=== PATIENT | male | born 1965 | race Caucasian/White ===

== ENCOUNTER 2017-08-31 03:48 | Emergency (ER) | payer BC, OTHER ==
[2017-08-31 03:56] VITALS: BP 159/85
--- NOTE | 2017-08-31 04:25 | EDM.PDOC ---
ED HPI GENERAL MEDICAL PROBLEM - General Chief Complaint: Gastrointestinal Problem Stated Complaint: ANAL BLEED Time Seen by Provider: 08/31/17 03:54 Source of Information: Reports: Patient History Limitations: Reports: No Limitations - History of Present Illness INITIAL COMMENTS - FREE TEXT/NARRATIVE: The patient presents with painful rectal bleeding. This started yesterday. He has a history of hemorrhoids. Every time he goes he has blood. He has some pain to his rectum. He has no fever but he does have some chills. He has no cough, chest pain or shortness of breath. He has no nausea or vomiting. He says he had a colonoscopy about 4 to 5 years ago. Onset: Gradual Duration: Day(s): (Yesterday) Location: Reports: Abdomen Quality: Reports: Sharp Severity: Moderate Improves with: Reports: None Worsens with: Reports: None Associated Symptoms: Reports: Fever/Chills. Denies: Confusion, Chest Pain, Cough, Nausea/Vomiting, Shortness of Breath Rectal Pain Score (Numeric/FACES): 2 - Related Data Allergies Allergy/AdvReac Type Severity Reaction Status Date / Time No Known Allergies Allergy Verified 08/31/17 03:52 Home Meds: Home Meds Hydrocodone/Acetaminophen [[place] 5-325] 1 - 2 tab PO Q6H PRN #5 tablet #5 Samples 09/09/14 [Rx] Tamsulosin HCl [Flomax] 0.4 mg PO Q24H #10 cap.er.24h 09/09/14 [Rx] Apixaban [Eliquis] 10 mg PO DAILY 08/31/17 [History] Aspirin [Halfprin] 81 mg PO DAILY 08/31/17 [History] Docusate Sodium [Stool Softener] 50 mg PO 08/31/17 [History] Ferrous Sulfate [Slow Release Iron] 100 mg PO DAILY 08/31/17 [History] Metoprolol Succinate/HCTZ [Metoprolol ER-Hctz 25-12.5 mg] 25 mg PO DAILY [History] Omeprazole 20 mg PO DAILY 08/31/17 [History] Simvastatin [Zocor] 20 mg PO BEDTIME 08/31/17 [History] Past Medical History Cardiovascular History: Reports: High Cholesterol Gastrointestinal History: Reports: GERD, Hemorrhoids Genitourinary History: Reports: Renal Calculus Musculoskeletal History: Reports: Arthritis - Past Surgical History Cardiovascular Surgical History: Reports: None GI Surgical History: Reports: Colonoscopy Male Surgical History: Reports: None Musculoskeletal Surgical History: Reports: None Social & Family History - Family History Family Medical History: Noncontributory - Tobacco Use Smoking Status *Q: Never Smoker Second Hand Smoke Exposure: No - Caffeine Use Caffeine Use: Reports: Soda - Alcohol Use Days Per Week of Alcohol Use: 0 - Recreational Drug Use Recreational Drug Use: No ED ROS GENERAL - Review of Systems Review Of Systems: See Below Constitutional: Reports: No Symptoms HEENT: Reports: No Symptoms Respiratory: Reports: No Symptoms Cardiovascular: Reports: No Symptoms Endocrine: Reports: No Symptoms GI/Abdominal: Reports: Abdominal Pain, Bloody Stool : Reports: No Symptoms Musculoskeletal: Reports: No Symptoms Skin: Reports: No Symptoms ED EXAM, GI/ABD - Physical Exam Exam: See Below Exam Limited By: No Limitations General Appearance: Alert, No Apparent Distress Ears: Normal External Exam Nose: Normal Inspection Head: Atraumatic, Normocephalic Neck: Normal Inspection Respiratory/Chest: No Respiratory Distress, Lungs Clear, Normal Breath Sounds Cardiovascular: Regular Rate, Rhythm, No Edema, No Murmur GI/Abdominal Exam: Soft, No Organomegaly, No Mass, Tender (Mild to the lower abdomen) Rectal (Males) Exam: Normal Rectal Tone, Heme + Stool, Other (Small extra hemorrhoids but no active bleeding) Course - Vital Signs Last Recorded V/S: Last Vital Signs Temp 97.4 F 08/31/17 03:54 Pulse 65 08/31/17 03:54 Resp 14 08/31/17 03:54 BP 159/85 H 08/31/17 03:54 Pulse Ox 97 08/31/17 03:54 - Orders/Labs/Meds Orders: Active Orders 24 hr Category Date Time Status Peripheral IV Care [RC] . DIRECTED Care 08/31/17 04:24 Active Abdomen Pelvis w Cont [CT] Stat Exams 08/31/17 04:23 Taken Sodium Chloride 0.9% [Normal Saline] 1,000 ml Med 08/31/17 04:30 Active IV ASDIRECTED Sodium Chloride 0.9% [Saline Flush] Med 08/31/17 04:23 Active 10 ml FLUSH ASDIRECTED PRN Peripheral IV Insertion Adult [OM.PC] Stat Oth 08/31/17 04:23 Ordered Medication Orders Sodium Chloride (Normal Saline) 1,000 mls @ 125 mls/hr IV ASDIRECTED GARRY Last Admin: 08/31/17 04:39 Dose: 125 mls/hr Sodium Chloride (Saline Flush) 10 ml FLUSH ASDIRECTED PRN PRN Reason: Keep Vein Open Last Admin: 08/31/17 05:35 Dose: 10 ml Admin: 08/31/17 04:39 Dose: 10 ml Labs: Laboratory Tests 08/31/17 08/31/17 08/31/17 Range/Units 04:30 04:30 05:45 WBC 8.20 (4.23-9.07) K/mm3 RBC 3.82 L (4.63-6.08) M/mm3 Hgb 11.0 L (13.7-17.5) gm/L Hct 34.1 L (40.1-51.0) % MCV 89.3 (79.0-92.2) fl MCH 28.8 (25.7-32.2) pg MCHC 32.3 (32.2-35.5) g/dl RDW Std Deviation 47.9 H (35.1-43.9) fL Plt Count 248 (163-337) K/mm3 MPV 9.9 (9.4-12.3) fl Neut % (Auto) 70.8 H (34.0-67.9) % Lymph % (Auto) 15.1 L (21.8-53.1) % [place] % (Auto) 11.5 (5.3-12.2) % Eos % (Auto) 1.6 (0.8-7.0) Baso % (Auto) 0.9 (0.1-1.2) % Neut # (Auto) 5.81 H (1.78-5.38) K/mm3 Lymph # (Auto) 1.24 L (1.32-3.57) K/mm3 [place] # (Auto) 0.94 H (0.30-0.82) K/mm3 Eos # (Auto) 0.13 (0.04-0.54) K/mm3 Baso # (Auto) 0.07 (0.01-0.08) K/mm3 Sodium 143 (136-145) mEq/L Potassium 3.9 (3.5-5.1) mEq/L Chloride 109 H (98-107) mEq/L Carbon Dioxide 23 (21-32) mEq/L Anion Gap 14.9 (5-15) BUN 19 H (7-18) mg/dL Creatinine 1.5 H (0.7-1.3) mg/dL Est Cr Clr Drug Dosing 68.85 mL/min Estimated GFR (MDRD) 49 (>60) mL/min BUN/Creatinine Ratio 12.7 L (14-18) Glucose 114 H (74-106) mg/dL Calcium 8.5 (8.5-10.1) mg/dL Total Bilirubin 0.5 (0.2-1.0) mg/dL AST 14 L (15-37) U/L ALT 24 (16-63) U/L Alkaline Phosphatase 65 (46-116) U/L Total Protein 6.5 (6.4-8.2) g/dl Albumin 3.5 (3.4-5.0) g/dl Globulin 3.0 gm/dL Albumin/Globulin Ratio 1.2 (1-2) Lipase 138 (73-393) U/L Urine Color Yellow (Yellow) Urine Appearance Clear (Clear) Urine pH 6.0 (5.0-8.0) Ur Specific [place] 1.015 (1.005-1.030) Urine Protein Trace H (Negative) Urine Glucose (UA) Negative (Negative) Urine Ketones Negative (Negative) Urine Occult Blood 2+ H (Negative) Urine Nitrite Negative (Negative) Urine Bilirubin Negative (Negative) Urine Urobilinogen 0.2 (0.2-1.0) Ur Leukocyte Esterase Negative (Negative) Urine RBC 5-10 H (0-5) /hpf Urine WBC 10-20 H (0-5) /hpf Ur Epithelial Cells 5-10 H (0-5) /hpf Urine Bacteria Rare (FEW) /hpf Urine Mucus Not seen (FEW) /hpf Meds: Medications Generic Name Dose Route Start Last Admin Trade Name Freq PRN Reason Stop Dose Admin Sodium Chloride 1,000 mls @ 125 mls/hr 08/31/17 04:30 08/31/17 04:39 Normal Saline IV 125 mls/hr ASDIRECTED GARRY Administration Sodium Chloride 10 ml 08/31/17 04:23 08/31/17 05:35 Saline Flush FLUSH 10 ml ASDIRECTED PRN Administration Keep Vein Open Discontinued Medications Generic Name Dose Route Start Last Admin Trade Name Adriane PRN Reason Stop Dose Admin Diatrizoate Meglum/Diatrizoate Sod 90 ml 08/31/17 05:23 08/31/17 05:34 Gastrografin 37% PO 08/31/17 05:24 90 ml ONETIME ONE Administration Iopamidol 125 ml 08/31/17 05:23 08/31/17 05:34 Isovue-300 (61%) IVPUSH 08/31/17 05:24 125 ml ONETIME ONE Administration - Re-Assessments/Exams Free Text/Narrative Re-Assessment/Exam: 08/31/17 04:26 I ordered an IV NS at 125mL/hr, labs, UA and a CT of his abdomen and pelvis. 08/31/17 06:27 His WBC was normal. His Hgb was a little low at 11. His creatinine was 1.5. His lipase was negative. He tells me that he has been having trouble with a kidney stone over the past few days and he may have passed it. His CT shows right nephrolithiasis. Mild right hydronephrosis and hydroureter, seen to the level of the bladder. NO obstructing stone identified. Findings possibly secondary to recently passed stone. Suggest correlation with urinalysis to exclude ascending urinary tract infection. No evidence of pyelonephritis. Colonic diverticulosis without evidence of diverticulitis. He is feeling better. He has not had any bleeding since he was here. I will have him follow up with Dr Yee and return if he is worse. Departure - Departure Time of Disposition: 06:35 Disposition: Home, Self-Care 01 Condition: Good Clinical Impression: Kidney stone, Rectal bleeding - Discharge Information Referrals: Pacheco Lockwood MD [Primary Care Provider] - Tarun Yee MD [Physician] - 2 Days Forms: ED Department Discharge Additional Instructions: Call Dr Yee today and follow up with him. Please return if you have more bleeding or pain. - My Orders Last 24 Hours: My Active Orders 08/31/17 04:23 Abdomen Pelvis w Cont [CT] Stat Sodium Chloride 0.9% [Saline Flush] 10 ml FLUSH ASDIRECTED PRN Peripheral IV Insertion Adult [OM.PC] Stat 08/31/17 04:24 Peripheral IV Care [RC] . DIRECTED 08/31/17 04:30 Sodium Chloride 0.9% [Normal Saline] 1,000 ml IV ASDIRECTED - Assessment/Plan Last 24 Hours: My Active Orders 08/31/17 04:23 Abdomen Pelvis w Cont [CT] Stat Sodium Chloride 0.9% [Saline Flush] 10 ml FLUSH ASDIRECTED PRN Peripheral IV Insertion Adult [OM.PC] Stat 08/31/17 04:24 Peripheral IV Care [RC] . DIRECTED 08/31/17 04:30 Sodium Chloride 0.9% [Normal Saline] 1,000 ml IV ASDIRECTED
[2017-08-31] MEDS ORDERED: Sodium Chloride 0.9% 1,000 ML IV SCH (04:30)
[2017-08-31] MEDS: Sodium Chloride 0.9% 10 ML Syringe FLUSH PRN ×2 (04:39→05:35)
[2017-08-31] MEDS ORDERED: Diatrizoate Meglumine/Diatrizoate Sodium 37% 120 ML Bottle PO ONE (05:23)
[2017-08-31] MEDS ORDERED: Iopamidol 612 MG/ML 150 ML Bottle IVPUSH ONE (05:23)
--- NOTE | 2017-08-31 12:54 | CT ---
CT abdomen and pelvis Technique: Multiple axial sections were obtained from above the dome of the diaphragm inferiorly to the pubic symphysis. Intravenous contrast was utilized. Small amount of oral contrast is seen. Delayed images were obtained through the pelvis. Comparison: Previous noncontrast CT abdomen and pelvis exam dated 05/16/15. Findings: Inflammatory change seen around the right kidney. There is mild dilatation of the right ureter down to the UVJ. No obstructing stone is seen within the right ureter or within the bladder. Several nonobstructing calculi seen within the right kidney. Contrast enhancement is symmetric between right and left kidneys. Visualized lung bases show nothing acute. Liver shows no focal parenchymal abnormality. Spleen appears within normal limits. Adrenal glands show no nodule. Pancreas is within normal limits. Aorta is slightly ectatic with AP dimension up to 2.5 cm. No pelvic mass or adenopathy is seen. Appendix is seen which appears normal in size. Delayed images show contrast within the distal left ureter. More delayed images show contrast excretion from the right kidney. Left sided colonic diverticuli noted without inflammatory change. Bone window settings were reviewed which show severe disc space narrowing at L5-S1 with vacuum phenomena. Mild spondylolisthesis is seen at L5-S1 due to bilateral spondylolytic defects. Impression: 1. Inflammatory change around the right kidney with mild dilatation of the right ureter. No obstructing stone is seen. Differential includes a stone that has passed as well as infection. Please correlate. 2. Several nonobstructing calculi within the right kidney. 3. Other incidental findings as noted above. Diagnostic code #3 I agree with preliminary report issued by [facility] ([facility] report finalized on 08/31/17, 6:50 AM Central Time)
== END 2017-08-31 06:40 | disposition home or self-care (01) ==
LOC: JD.ED 03:48
DX: K62.5 Hemorrhage of anus and rectum (principal); N13.2 Hydronephrosis with renal and ureteral calculous obstruction; E78.00 Pure hypercholesterolemia, unspecified; K21.9 Gastro-esophageal reflux disease without esophagitis; M19.90 Unspecified osteoarthritis, unspecified site; Z79.82 Long term (current) use of aspirin; Z79.899 Other long term (current) drug therapy
CPT/HCPCS: 36415; 74177; 80053; 81001; 83690; 85025; 96360; 96361; 99284; J7040; J7050; Q9963; Q9967

== ENCOUNTER → 2017-09-06 | Day surgery (SDC) | payer BC ==
[~2017-09-06] MED LIST: Lactated Ringers 1,000 ML IV SCH; Lidocaine 1% 4 ML ONE; Lidocaine 1%/Sod Bicarbonate in NS 8.4% 1 ML Syringe PRN; Propofol 200 MG/20 ML SDV ONE; Sodium Chloride 0.9% 10 ML Syringe FLUSH PRN; fentaNYL 100 MCG/2 ML SDV ONE
--- NOTE | 2017-09-06 08:07 | PCM.PREANE ---
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 and no symptoms noted since.) Other: Reports: None (CT scan reveals Right hydronephrosis due likely to a renal stone./Mild renal insufficiency noted./Patient states that he has recently passed the kidney stone.), Easy Bleeding (Off of Eliquis since 2016), Easy Bruising, Diabetes (Pre-diabetic monitoring noted.) - Physical Assessment NPO Status Date: 09/05/17 NPO Status Time: 18:00 Pulse: 57 O2 Sat by Pulse Oximetry: 97 Respiratory Rate: 16 Blood Pressure: 147/86 Temperature: 37.3 C Height: 1.91 m Weight: 114.759 kg ASA Class: 2 Mental Status: Alert & Oriented x3 Airway Class: Mallampati = 2 Dentition: Reports: Normal Dentition, Caries Thyro-Mental Finger Breadths: 3 Mouth Opening Finger Breadths: 3 ROM/Head Extension: Full Lungs: Clear to Auscultation, Normal Respiratory Effort Cardiovascular: Regular Rate, Regular Rhythm - Lab Values: Lab values reviewed and noted and within acceptable ranges to proceed with scheduled procedure. - Allergies Allergies/Adverse Reactions: Allergies Allergy/AdvReac Type Severity Reaction Status Date / Time No Known Allergies Allergy Verified 09/03/17 12:31 - Anesthesia Plan Pre-Op Medication Ordered: Beta Shantell Beta Shantell: Metoprolol Med Last Dose Date: 09/06/17 Med Last Dose Time: 06:30 - Acknowledgements Anesthesia Type Planned: MAC Pt an Appropriate Candidate for the Planned Anesthesia: Yes Alternatives and Risks of Anesthesia Discussed w Pt/Guardian: Yes Pt/Guardian Understands and Agrees with Anesthesia Plan: Yes PreAnesthesia Questionnaire HEENT History: Reports: Other (See Below) Other HEENT History: acute pharyngitis Cardiovascular History: Reports: High Cholesterol, Hypertension Other Cardiovascular History: atrial septal defect Respiratory History: Reports: None Gastrointestinal History: Reports: GERD, Hemorrhoids Genitourinary History: Reports: Renal Calculus, Other (See Below) Other Genitourinary History: hematuria 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 Musculoskeletal History: Reports: Arthritis, Other (See Below) Other Musculoskeletal History: ankle fracture, L shoulder pain Neurological History: Reports: CVA, TIA, Other (See Below) Other Neuro History: facial weakness Psychiatric History: Reports: None Endocrine/Metabolic History: Reports: None Hematologic History: Reports: Anemia Immunologic History: Reports: None Oncologic (Cancer) History: Reports: None Dermatologic History: Reports: Other (See Below) Other Dermatologic History: skin disorder - Past Surgical History Head Surgeries/Procedures: Reports: None Cardiovascular Surgical History: Reports: None Respiratory Surgical History: Reports: None GI Surgical History: Reports: Colonoscopy, Hernia Repair/Other Female Surgical History: Reports: None Male Surgical History: Reports: None Endocrine Surgical History: Reports: None Neurological Surgical History: Reports: None Musculoskeletal Surgical History: Reports: None Oncologic Surgical History: Reports: None - SUBSTANCE USE Smoking Status *Q: Never Smoker Second Hand Smoke Exposure: No Days Per Week of Alcohol Use: 0 Recreational Drug Use History: No - HOME MEDS Home Medications: Home Meds Apixaban [Eliquis] 5 mg PO DAILY 08/31/17 [History] Aspirin [Halfprin] 81 mg PO DAILY 08/31/17 [History] Metoprolol Succinate/HCTZ [Metoprolol ER-Hctz 25-12.5 mg] 25 mg PO DAILY [History] Omeprazole 20 mg PO DAILY 08/31/17 [History] Simvastatin [Zocor] 20 mg PO BEDTIME 08/31/17 [History] Docusate Sodium [Colace] 100 mg PO BID 09/03/17 [History] Ferrous Sulfate [Iron] 325 mg PO BID 09/03/17 [History] - CURRENT (IN HOUSE) MEDS Current Meds: Current Medications Lactated Ringer's (Ringers, Lactated) 1,000 mls @ 125 mls/hr IV ASDIRECTED GARRY Stop: 09/06/17 23:00 Lidocaine/Sodium Bicarbonate (Buffered Lidocaine 1% In Ns 8.4%) 0.25 ml .XX ONETIME PRN PRN Reason: Prior to IV Start Stop: 09/06/17 18:00 Sodium Chloride (Saline Flush) 10 ml FLUSH ASDIRECTED PRN PRN Reason: Keep Vein Open Stop: 09/06/17 18:00 Discontinued Medications Fentanyl (Sublimaze) Confirm Administered Dose 100 mcg .ROUTE .STK-MED ONE Stop: 09/06/17 07:22 Lidocaine HCl (Xylocaine-Mpf 1%) Confirm Administered Dose 4 mls @ as directed .ROUTE .STK-MED ONE Stop: 09/06/17 07:22 Propofol (Diprivan 20 Ml) Confirm Administered Dose 200 mg .ROUTE .STK-MED ONE Stop: 09/06/17 07:22
--- NOTE | 2017-09-06 10:10 | PCM48HPAN ---
Post Anesthesia Note - EVALUATION WITHIN 48HRS OF ANESTHETIC Vital Signs in Normal Range: Yes Patient Participated in Evaluation: Yes Respiratory Function Stable: Yes Airway Patent: Yes Cardiovascular Function Stable: Yes Hydration Status Stable: Yes Pain Control Satisfactory: Yes Nausea and Vomiting Control Satisfactory: Yes Mental Status Recovered: Yes
--- NOTE | 2017-09-06 10:15 | PCM.OPNOTE ---
- General Post-Op/Procedure Note Date of Surgery/Procedure: 09/06/17 Operative Procedure(s): colonoscopy to cecum Findings: diverticulosis and internal hemorrhoids Pre Op Diagnosis: rectal bleeding Post-Op Diagnosis: Same Anesthesia Technique: MAC Primary Surgeon: Tarun Yee EBL in mLs: 0 Condition: Good
[2017-09-06 10:39] VITALS: BP 128/76
--- NOTE | 2017-09-06 13:29 | OR ---
DATE OF OPERATION: SURGEON: Tarun Yee MD PREOPERATIVE DIAGNOSIS: Rectal bleeding. POSTOPERATIVE DIAGNOSIS: Rectal bleeding. OPERATION PERFORMED: Colonoscopy to cecum. FINDINGS: Stage III to stage IV internal hemorrhoids as source of bleeding with prominent rectal veins noted. There was diverticulosis throughout the colon. There were no angiodysplasias, neoplasias, large tumor masses, or ulcerations noted. ANESTHESIA: Done under IV sedation. DESCRIPTION OF PROCEDURE: The patient was taken to the endoscopy room, placed in a supine position, connected to monitoring equipment, and given IV sedation. The patient was placed in left lateral position. Perianal area inspected and showed external hemorrhoids. Rectal exam showed good sphincter tone. A video Olympus colonoscope was then introduced into the rectum and threaded up without problem to the cecum, where the appendicular orifice and ileocecal valve were noted. The scope was slowly withdrawn showing the cecum, ascending colon, transverse colon, descending colon, sigmoid colon, and rectum. Retroflexed view showed some prominent internal hemorrhoids and prominent rectal veins with some mild inflammation of the internal hemorrhoids. The diverticulosis was noted and scattered throughout the colon. Arrangements will be made for him to have a staple hemorrhoidectomy AZAM because of his dependency on anticoagulation. The patient tolerated the procedure and was sent to recovery room in a stable condition. ESTIMATED BLOOD LOSS: MMODAL /[id number]
== END | disposition home or self-care (01) ==
LOC: JD.SDS 07:39
PROVIDERS: ATTEND Surgery
DX: K64.2 Third degree hemorrhoids (principal); K64.3 Fourth degree hemorrhoids; K57.30 Diverticulosis of large intestine without perforation or abscess without bleeding; N13.30 Unspecified hydronephrosis; D50.9 Iron deficiency anemia, unspecified; I10 Essential (primary) hypertension; E78.5 Hyperlipidemia, unspecified; M19.90 Unspecified osteoarthritis, unspecified site; Z86.73 Personal history of transient ischemic attack (TIA), and cerebral infarction without residual deficits; Z79.01 Long term (current) use of anticoagulants; Z79.82 Long term (current) use of aspirin; Z79.899 Other long term (current) drug therapy; Z98.890 Other specified postprocedural states; Z87.442 Personal history of urinary calculi
CPT/HCPCS: 45378; J3010; J7120; 00810; J2704

== ENCOUNTER 2020-10-21 07:21 | Day surgery (SDC) | payer BC ==
--- NOTE | 2020-10-17 11:58 | PCM.SN.2 ---
- Free Text/Narrative Note: Left selective femoral nerve block at the adductor canal for post-procedure pain control under US guidance requested by Dr. Jansen. Time Out: 1125 Start: 1126 End: 1135 Chart reviewed. Consent signed. Questions answered. Appropriate monitors applied. Time out performed. Left mid-shaft femur identified with ultrasound, scanning medially of femur, the femoral artery in the adductor canal visualized, and the femoral nerve located laterally to the artery. The skin was prepped lateral to the ultrasound probe with chlorahexadine times two. The 21ga 4 insulated block needle was inserted under direct ultrasound guidance into the adductor canal. 30 mL of 0.5% ropivacaine with 1:200,000 epinephrine was injected circumferentially around the nerve with intermittent transient positive aspiration noted. Patient tolerated the procedure well. Sterile technique noted along with sterile gloves, mask, and sterile probe cover. See picture on progress note and vital signs on nurses notes. Block completed in PACU. Surekha Curran CRNA
--- NOTE | 2020-10-17 12:16 | PCM.PREANE ---
Preanesthetic Assessment - Procedure Proposed Procedure: Left Total Knee Arthroplasty and Right knee steroid injection - Anesthesia/Transfusion/Family Hx Anesthesia History: Prior Anesthesia Without Reaction Family History of Anesthesia Reaction: No Transfusion History: No Prior Transfusion(s) Intubation History: Unknown - Review of Systems General: No Symptoms Pulmonary: No Symptoms Cardiovascular: No Symptoms (Elevated cholesterol, History of HTN) Gastrointestinal: No Symptoms (GERD) Neurological: No Symptoms (History of CVA (TIA) 8 years ago, no residual side effects noted. Patient was on eliquis due to right to left atrial shunt: last dose/), Difficulty Walking, Gait Disturbance Other: Reports: None (Elevated Creatinine noted/history of kidney stones.) - Physical Assessment NPO Status Date: 10/20/20 NPO Status Time: 22:00 Vital Signs: HR:64 B/P:164/101 Resp:16 Temp:98 Sat:97% Height: 1.91 m Weight: 117 kg ASA Class: 3 Mental Status: Alert & Oriented x3 Airway Class: Mallampati = 2 Dentition: Reports: Normal Dentition, Caries Thyro-Mental Finger Breadths: 3 Mouth Opening Finger Breadths: 3 ROM/Head Extension: Full Lungs: Clear to Auscultation, Normal Respiratory Effort Cardiovascular: Regular Rate, Regular Rhythm, No Murmurs - Lab Values: All labs reviewed and noted and within acceptable ranges to proceed with scheduled procedure. - Imaging/EKG Impressions: EKG: SR rate=60 CXR: minimal basal atelectasis noted - Allergies Allergies/Adverse Reactions: Allergies Allergy/AdvReac Type Severity Reaction Status Date / Time No Known Allergies Allergy Verified 09/06/17 08:17 - Anesthesia Plan Pre-Op Medication Ordered: None, Other (PreOp med: lyrica,tylenol, oxycodone all p.o. at: 07:45) - Acknowledgements Anesthesia Type Planned: Spinal (Left adductor canal block under US guidance for post operative pain control requested by Dr. Jansen.) Pt an Appropriate Candidate for the Planned Anesthesia: Yes Alternatives and Risks of Anesthesia Discussed w Pt/Guardian: Yes Pt/Guardian Understands and Agrees with Anesthesia Plan: Yes PreAnesthesia Questionnaire HEENT History: Reports: Other (See Below) Other HEENT History: acute pharyngitis Cardiovascular History: Reports: High Cholesterol, Hypertension Other Cardiovascular History: atrial septal defect Respiratory History: Reports: None Gastrointestinal History: Reports: GERD, Hemorrhoids Genitourinary History: Reports: Renal Calculus, Other (See Below) Other Genitourinary History: hematuria 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 Musculoskeletal History: Reports: Arthritis, Other (See Below) Other Musculoskeletal History: ankle fracture, L shoulder pain Neurological History: Reports: CVA, TIA, Other (See Below) Other Neuro History: facial weakness Psychiatric History: Reports: None Endocrine/Metabolic History: Reports: None Hematologic History: Reports: Anemia Immunologic History: Reports: None Oncologic (Cancer) History: Reports: None Dermatologic History: Reports: Other (See Below) Other Dermatologic History: skin disorder - Past Surgical History Head Surgeries/Procedures: Reports: None Cardiovascular Surgical History: Reports: None Respiratory Surgical History: Reports: None GI Surgical History: Reports: Colonoscopy, Hernia Repair/Other Female Surgical History: Reports: None Male Surgical History: Reports: None Endocrine Surgical History: Reports: None Neurological Surgical History: Reports: None Musculoskeletal Surgical History: Reports: None Oncologic Surgical History: Reports: None - HOME MEDS Home Medications: Home Meds Aspirin [Halfprin] 81 mg PO DAILY 08/31/17 [History] Metoprolol Succinate/HCTZ [Metoprolol ER-Hctz 25-12.5 mg] 25 mg PO DAILY 08/31/17 [History] Omeprazole 20 mg PO DAILY 08/31/17 [History] Simvastatin [Zocor] 20 mg PO BEDTIME 08/31/17 [History] Docusate Sodium [Colace] 100 mg PO BID 09/03/17 [History] Ferrous Sulfate [Iron] 325 mg PO BID 09/03/17 [History] Apixaban [Eliquis] 2.5 mg PO BID #60 tablet 10/21/20 [Rx] Cyclobenzaprine [Flexeril] 10 mg PO BID PRN #20 tab 10/21/20 [Rx] oxyCODONE 5 - 10 mg PO Q4H PRN #60 tab 10/21/20 [Rx] - CURRENT (IN HOUSE) MEDS Current Meds: Current Medications Morphine Sulfate 8 mg/Epinephrine HCl 0.3 mg/Cefuroxime Sodium 750 mg/Ketorolac Tromethamine 30 mg/Sodium Chloride 7.9 ml 0 mg .XX ASDIRECTED PRN PRN Reason: Pain Stop: 10/21/20 18:00 Lactated Ringer's (Ringers, Lactated) 1,000 mls @ 125 mls/hr IV ASDIRECTED GARRY Stop: 10/21/20 23:00 Lidocaine/Sodium Bicarbonate (Buffered Lidocaine 1% In Ns 8.4%) 0.25 ml IDERM ONETIME PRN PRN Reason: Prior to IV Start Stop: 10/21/20 18:00 Sodium Chloride (Saline Flush) 10 ml FLUSH ASDIRECTED PRN PRN Reason: Keep Vein Open Stop: 10/21/20 18:00
[~2020-10-21 07:21] MED LIST changes: +Acetaminophen 325 MG Tab PO SCH; +Dexamethasone 4 MG/ML 5 ML MDV ONE; +EPINEPHrine 1 MG/ML SDV ONE; +Ketamine 500 mg/10 ML MDV ONE; +Lactated Ringers 2,000 ML ONE; +Lidocaine 1%/Sod Bicarbonate in NS 8.4% 1 ML Syringe IDERM PRN; -Lidocaine 1%/Sod Bicarbonate in NS 8.4% 1 ML Syringe PRN; +Midazolam 1 MG/ML 2 ML SDV ONE; +Morphine 8 MG, EPINEPHrine 0.3 MG, Cefuroxime 750 MG, Ketorolac 30 MG, Sodium Chloride ... PRN; +Ondansetron 4 MG/2 ML SDV ONE; +Pregabalin 25 MG Cap PO SCH; +Ropivacaine 0.5% 5 MG/ML 30 ML SDV ONE; +ceFAZolin 1 GM Vial ONE; +oxyCODONE ER 10 MG TAB.ER PO SCH
[2020-10-21] MEDS ORDERED: Bupivacaine 0.25% 10 ML SDV ONE (07:36)
[2020-10-21] MEDS ORDERED: Triamcinolone Acetonide 40 MG/ML 1 ML SDV ONE ×2 (07:36)
[2020-10-21] MEDS ORDERED: Midazolam 1 MG/ML 2 ML SDV ONE (09:32)
[2020-10-21] MEDS ORDERED: Ondansetron 4 MG/2 ML SDV IVPUSH PRN (09:51)
[2020-10-21] MEDS ORDERED: diphenhydrAMINE 50 MG/ML SDV IVPUSH PRN (09:51)
[2020-10-21] MEDS ORDERED: ePHEDrine 50 MG/ML SDV IVPUSH PRN (09:51)
[2020-10-21] MEDS ORDERED: Albuterol 0.083% 2.5 MG/3 ML Neb Soln NEB PRN (09:51)
[2020-10-21] MEDS ORDERED: ePHEDrine 50 MG/ML SDV ONE (10:18)
[2020-10-21] MEDS ORDERED: Propofol 200 MG/20 ML SDV ONE (10:36)
[2020-10-21] MEDS: Vancomycin 1 GM SDV ONE ×2 (10:49→10:55)
[2020-10-21] MEDS: fentaNYL 100 MCG/2 ML SDV IVPUSH PRN ×2 (11:41→11:50)
--- NOTE | 2020-10-21 11:43 | PCM.POSTAN ---
POST ANESTHESIA ASSESSMENT - MENTAL STATUS Mental Status: Alert - VITAL SIGNS Vital Signs: Last Vital Signs Temp 36.7 C 10/21/20 1120 Pulse 64 10/21/20 1120 Resp 16 10/21/20 1120 BP 164/101 H 10/21/20 1120 Pulse Ox 97 10/21/20 1120 - RESPIRATORY Respiratory Status: Respiratory Rate WNL, Airway Patent, O2 Saturation Stable, Supplemental Oxygen - CARDIOVASCULAR CV Status: Pulse Rate WNL, Blood Pressure Stable - GASTROINTESTINAL GI Status: No Symptoms - POST OP HYDRATION Hydration Status: Adequate & Stable
[2020-10-21] MEDS ORDERED: Cyclobenzaprine 10 MG Tab PO SCH (12:15)
--- NOTE | 2020-10-21 12:24 | PCM48HPAN ---
Post Anesthesia Note - EVALUATION WITHIN 48HRS OF ANESTHETIC Vital Signs in Normal Range: Yes Patient Participated in Evaluation: Yes Respiratory Function Stable: Yes Airway Patent: Yes Cardiovascular Function Stable: Yes Hydration Status Stable: Yes Pain Control Satisfactory: Yes Nausea and Vomiting Control Satisfactory: Yes Mental Status Recovered: Yes Vital Signs: Last Vital Signs Temp 36.7 C 10/21/20 12:05 Pulse 61 10/21/20 12:05 Resp 14 10/21/20 12:05 BP 136/79 10/21/20 12:05 Pulse Ox 96 10/21/20 12:05
--- NOTE | 2020-10-21 12:37 | CR ---
PROCEDURE INFORMATION: Exam: XR Left Knee Exam date and time: 10/21/2020 11:31 AM Age: 55 years old Clinical indication: Device placement; Joint replacement hardware; Additional info: Post-operative left knee replacement films TECHNIQUE: Imaging protocol: XR Left knee. Views: 1 or 2 views. COMPARISON: CR Bone Length Scanogram, Knee Standing AP Bi, Knee 3V Bi 09/24/2020 2:43 PM FINDINGS: Bones/joints: Postoperative changes of new left TKA. The components appear well seated. Soft tissues: Soft tissue gas and soft tissue swelling about left knee. IMPRESSION: New left TKA appears well seated. Thank you for allowing us to participate in the care of your patient. Dictated and Authenticated by: Tiera Sifuentes MD 10/21/2020 1:21 PM Central Time ([place] & [place]) MATTIE
[2020-10-21] MEDS ORDERED: oxyCODONE 5 MG Tab PO PRN (14:23)
[2020-10-21 14:43] VITALS: PULSE 72
[2020-10-21 15:44] VITALS: BP 141/75
--- NOTE | 2020-11-01 07:44 | PCM.OPNOTE ---
- General Post-Op/Procedure Note Date of Surgery/Procedure: 10/21/20 Operative Procedure(s): left total knee arthroplasty with right knee corticosteroid injection Pre Op Diagnosis: bilateral knee osteoarthrosis Post-Op Diagnosis: Same Anesthesia Technique: Local, MAC, Spinal Primary Surgeon: Suleman Jansen Anesthesia Provider: Surekha Curran Gas Appliance Adjuster: Najma Nino Gas Appliance Adjuster: Kendra Rivera EBL in mLs: 400 Complications: None Condition: Good Free Text/Narrative:: 06/04 10mm 35x10
--- NOTE | 2020-11-01 08:09 | OR ---
DATE OF OPERATION: 10/21/2020 SURGEON: Suleman Jansen MD OPERATION PERFORMED: Left total knee arthroplasty with right knee corticosteroid injection. PREOPERATIVE DIAGNOSIS: Bilateral knee osteoarthrosis. POSTOPERATIVE DIAGNOSIS: Bilateral knee osteoarthrosis. ANESTHESIA: Local MAC with spinal. ANESTHESIA PROVIDER: Surekha Curran CRNA ASSISTANTS: Najma Nino PA-C and Kendra Rivera LPN ESTIMATED BLOOD LOSS: 400 mL. COMPLICATIONS: None. CONDITION: Stable. IMPLANTS: 1. Jarvis size 7 press-fit CR femur. 2. [place] size 7 press-fit tibial base plate. 3. Jarvis size 7, 10 mm CS polyethylene insert. 4. Jarvis size 35 x 10 mm asymmetric patella press fit. DESCRIPTION OF PROCEDURE: The patient was identified in the preop holding area. Proper site was marked and identified by the surgeon. The patient was taken back to the operating theater. After adequate anesthesia, the patient's left lower extremity had a nonsterile tourniquet applied and it was sterilely prepped and draped in the usual sterile fashion. OR time-out was performed. The patient received 2 g IV Ancef. At this time, the left lower extremity was exsanguinated. Tourniquet was insufflated to 300 mmHg. Standard medial parapatellar incision was made. Medial parapatellar arthrotomy was created. Deep fibers of the MCL were raised and anterior fat pad was resected. At this time, attention was turned to the patella. Patella measured 25, it was resected to a 15 for a 35 x 10 mm patella. Drill holes were then drilled and found to be in adequate position. The drill was then drilled in the distal femur and the intramedullary distal femoral cutting guide was then placed. 8 mm was resected off the distal femur and was found to be an adequate resection. Sizing guide was placed. It was found to be a size 7 press-fit CR femur that was shown on the implant record at the beginning of this dictation. The drill holes were drilled for the epicondylar axis using [place]ites[place] line and epicondyles as reference. At this time, the 4-in- 1 cutting block was placed. An anterior posterior and anterior and posterior chamfer cuts were then completed. Attention was turned to the tibia. The posterior medial lateral retractors were placed. The extramedullary tibial guide was placed. It was placed in the old footprint of the ACL. It was aligned with the center of the ankle and 0 degrees of slope, 9 mm was then resected off the unaffected side. There was found to be an acceptable reduction. At this time, posterior osteophytes were removed along with medial and lateral meniscus. A trial implant was placed with a correct sized tibia that was mentioned at the beginning of the dictation. A Jarvis size 7, 10 mm CS polyethylene insert was then placed. The patient's knee was brought through range of motion. The patella was tracking centrally and was stable to varus and valgus stress. Alignment was found to be roughly at 0 degrees. The tibia was stamped and drilled in proper rotation. The universal tibial base plate was impacted in place. Next, the Jarvis size 7 press-fit CR femur impacted into place and the Jarvis size 7, 10 mm CS polyethylene insert was placed. The patient's knee was brought into full extension. The patella was then press-fit in place at this time. Tourniquet was deflated. One liter dilute Betadine solution was irrigated through the knee along with 3 L of pulse lavage irrigation with Ancef. Periarticular injection was then completed. The patient's knee was brought through a range of motion. Knee was found to be stable to varus valgus stress, the patella was tracking centrally with full range of motion. At this time, a #2 barbed suture was used for closure of the medial parapatellar arthrotomy. Topical tranexamic acid was placed. 2-0 Vicryl was used subcutaneously, Prineo was used for the skin. The patient tolerated the procedure well and was sent to the PACU in stable condition. Under sterile technique 2ml 40mg Kenalog and 4ml 0.25% marcaine were injected to the contralateral side. MMODAL /[id number] MATTIE
== END 2020-10-21 15:24 | disposition home or self-care (01) ==
LOC: JD.SDS 07:21
PROVIDERS: ATTEND Orthopaedic Surgery
DX: M17.0 Bilateral primary osteoarthritis of knee (principal); R73.01 Impaired fasting glucose; R35.0 Frequency of micturition; E78.2 Mixed hyperlipidemia; E78.00 Pure hypercholesterolemia, unspecified; I10 Essential (primary) hypertension; Z79.899 Other long term (current) drug therapy
CPT/HCPCS: 20610; 27447; 73560; 97110; 97116; 97161; 97165; A9270; C1776; J0171; J0690; J0697; J1100; J1885; J2001; J2250; J2270; J2370; J2405; J2704; J2795; J3010; J3301; J3370; J3490; J7120; 01402; 64450

== ENCOUNTER 2021-11-12 08:05 | Emergency (ER) | payer BC ==
[2021-11-12 08:23] VITALS: BP 149/100; PULSE 82
--- NOTE | 2021-11-12 08:50 | EDM.PDOC ---
ED HPI GENERAL MEDICAL PROBLEM - General Chief Complaint: General Stated Complaint: blood coming from backside Time Seen by Provider: 11/12/21 08:22 Source of Information: Reports: Patient History Limitations: Reports: No Limitations - History of Present Illness INITIAL COMMENTS - FREE TEXT/NARRATIVE: 56-year-old male presents the emergency department today with complaints of b leeding hemorrhoids. Patient states he has had issues with hemorrhoids for several years. Generally using [id number] creams. States he woke this morning with a large area of blood noted in his underwear. Bleeding has since stopped. He denies any dizziness associated with any blood loss. He is he does take a baby aspirin daily. hemmroid Pain Score (Numeric/FACES): 5 - Related Data Allergies Allergy/AdvReac Type Severity Reaction Status Date / Time No Known Allergies Allergy Verified 11/12/21 08:23 Home Meds: Home Meds . [No Known Home Meds] 11/12/21 [History] Past Medical History HEENT History: Reports: Other (See Below) Other HEENT History: acute pharyngitis Cardiovascular History: Reports: High Cholesterol, Hypertension Other Cardiovascular History: atrial septal defect Respiratory History: Reports: None Gastrointestinal History: Reports: GERD, Hemorrhoids Genitourinary History: Reports: Renal Calculus, Other (See Below) Other Genitourinary History: hematuria UI UX ENGINEER History: Reports: None Musculoskeletal History: Reports: Arthritis, Other (See Below) Other Musculoskeletal History: ankle fracture, L shoulder pain Neurological History: Reports: CVA, TIA, Other (See Below) Other Neuro History: facial weakness Psychiatric History: Reports: None Endocrine/Metabolic History: Reports: None Hematologic History: Reports: Anemia Immunologic History: Reports: None Oncologic (Cancer) History: Reports: None Dermatologic History: Reports: Other (See Below) Other Dermatologic History: skin disorder - Past Surgical History Head Surgeries/Procedures: Reports: None Cardiovascular Surgical History: Reports: None Respiratory Surgical History: Reports: None GI Surgical History: Reports: Colonoscopy, Hernia Repair/Other Male Surgical History: Reports: None Endocrine Surgical History: Reports: None Neurological Surgical History: Reports: None Musculoskeletal Surgical History: Reports: None Oncologic Surgical History: Reports: None Social & Family History - Family History Family Medical History: No Pertinent Family History - Caffeine Use Caffeine Use: Reports: None, Soda ED ROS GENERAL - Review of Systems Review Of Systems: Comprehensive ROS is negative, except as noted in HPI. ED EXAM, GENERAL - Physical Exam Exam: See Below Exam Limited By: No Limitations General Appearance: Alert, WD/WN, No Apparent Distress Ears: Normal External Exam, Hearing Grossly Normal Nose: Normal Inspection Throat/Mouth: Normal Inspection, Normal Lips, Normal Voice, No Airway Compromise Head: Atraumatic, Normocephalic Neck: Normal Inspection, Supple Respiratory/Chest: No Respiratory Distress, No Accessory Muscle Use Cardiovascular: Normal Peripheral Pulses, Regular Rate, Rhythm GI/Abdominal: Normal Bowel Sounds, No Distention (Male) Exam: Deferred Rectal (Males) Exam: Hemorrhoids (Large external hemorrhoid noted at the 9 o'clock position smaller hemorrhoid that is also external noted at the 5 o'clock position) Back Exam: Normal Inspection Extremities: Normal Inspection Neurological: Alert, Oriented, Normal Cognition Psychiatric: Normal Affect, Normal Mood Skin Exam: Warm, Dry, Intact, Normal Color, No Rash Lymphatic: No Adenopathy Course - Vital Signs Text/Narrative:: As stated above, patient presents with rectal bleeding likely due to hemorrhoids. On exam, patient does have a very large external hemorrhoid noted at the 9 o'clock position and a small external hemorrhoid noted at the 5 o'clock position. I do not appreciate any bleeding noted from this area. There is no dried blood there is no oozing blood. At this time I do not feel that the patient needs a full work-up as he has not had continuous rectal bleeding. He will be given a prescription for rectal rockets to [facility] pharmacy. Recommend that he follow-up with a general surgeon regarding his hemorrhoids as he states he is never done this. He requests to follow-up with Dr. Metcalf at [facility] [place]. He has been given strong return precautions. Last Recorded V/S: Last Vital Signs Temp 97.8 F 11/12/21 08:20 Pulse 82 11/12/21 08:20 Resp 18 11/12/21 08:20 BP 149/100 H 11/12/21 08:20 Pulse Ox 96 11/12/21 08:20 Departure - Departure Time of Disposition: 08:46 Disposition: Home, Self-Care 01 Condition: Good Clinical Impression: Hemorrhoids Qualifiers: Hemorrhoid type: unspecified Qualified Code(s): K64.9 - Unspecified hemorrhoids - Discharge Information Instructions: Hemorrhoids, [id number] Referrals: Pacheco Lockwood MD [Primary Care Provider] - Mervin Metcalf MD [Physician] - Forms: ED Department Discharge Additional Instructions: You were seen in the emergency department today with complaints of bleeding hemorrhoids. At today's visit, bleeding had stopped and I do not feel any further investigation is warranted such as lab work etc. I did give you a prescription for rectal rockets to be filled out at [facility] pharmacy. Take these as prescribed. You will need to follow-up with general surgeon, Dr. Metcalf at [facility]. You can call to schedule appointment at [phone]. Should you develop worsening rectal bleeding, or become lightheaded and dizzy, you do need to be reevaluated in the emergency department. Sepsis Event Note (ED) - Evaluation Sepsis Screening Result: No Definite Risk - Focused Exam Vital Signs: Vital Signs Temp Pulse Resp BP Pulse Ox 11/12/21 08:20 97.8 F 82 18 149/100 H 96
== END 2021-11-12 08:56 | disposition home or self-care (01) ==
LOC: JD.ED 08:05
DX: K64.9 Unspecified hemorrhoids (principal); E78.00 Pure hypercholesterolemia, unspecified; I10 Essential (primary) hypertension; Z86.73 Personal history of transient ischemic attack (TIA), and cerebral infarction without residual deficits
CPT/HCPCS: 99282

== ENCOUNTER 2022-04-21 14:05 | Emergency (ER) | payer BC ==
[2022-04-21 14:24] VITALS: BP 142/83; PULSE 78
[2022-04-21] MEDS ORDERED: Sodium Chloride 0.9% 1,000 ML IV SCH ×2 (14:30→15:30)
[2022-04-21] MEDS ORDERED: Sodium Chloride 0.9% 1,000 ML IV ONE (15:38)
[2022-04-21] MEDS ORDERED: Sodium Chloride 0.9% 10 ML Syringe FLUSH ONE (15:39)
[2022-04-21] MEDS ORDERED: Iopamidol 755 Mg/ML 100 ML Bottle IVPUSH ONE (15:39)
[2022-04-21] MEDS ORDERED: Sodium Chloride 0.9% 100 ML IV SCH (15:45)
[2022-04-21 16:53] LABS: HEMOGLOBIN A1C 6.2 %
== END 2022-04-21 17:17 | disposition home or self-care (01) ==
LOC: JD.ED 14:05
DX: H34.232 Retinal artery branch occlusion, left eye (principal); Z86.73 Personal history of transient ischemic attack (TIA), and cerebral infarction without residual deficits
CPT/HCPCS: 36415; 70450; 70496; 70498; 80053; 80061; 82947; 83036; 85025; 85610; 85652; 85730; 93005; 96360; 99284; J3490; J7030; Q9967; 93010

== ENCOUNTER 2024-08-11 15:24 | Emergency (ER) | payer BC ==
[2024-08-11 16:18] LABS: BASOPHILS ABSOLUTE AUTO 0.1 K/mm3 (0.0-0.2); BASOPHILS PERCENT AUTO 1.1 % (0.0-1.0); EOSINOPHILS ABSOLUTE AUTO 0.1 K/mm3 (0.0-0.4); EOSINOPHILS PERCENT AUTO 2.2 % (0.0-6.0); HEMATOCRIT 42.8 % (42.0-52.0); HEMOGLOBIN 14.3 gm/dl (14.0-18.0); IMMATURE GRAN ABSOLUTE AUTO 0.01 K/mm3 (0.00-0.05); IMMATURE GRAN PERCENT AUTO 0.2 % (0.0-0.4); LYMPHOCYTES ABSOLUTE AUTO 1.8 K/mm3 (1.0-4.8); LYMPHOCYTES PERCENT AUTO 32.5 % (24.0-44.0); MEAN CORPUSCULAR HEMOGLOBIN 28.7 pg (28.0-32.0); MEAN CORPUSCULAR HGB CONC 33.4 g/dl (32.0-36.0); MEAN CORPUSCULAR VOLUME 85.9 fl (83.0-99.0); MEAN PLATELET VOLUME 10.2 fl (9.4-12.4); MONOCYTES ABSOLUTE AUTO 0.6 K/mm3 (0.0-0.8); MONOCYTES PERCENT AUTO 10.3 % (0.0-8.0); NEUTROPHILS PERCENT AUTO 53.7 % (41.0-71.0); PLATELET COUNT,PLT 268 K/mm3 (150-400); RED BLOOD CELL COUNT 4.98 M/mm3 (4.52-5.90); WHITE BLOOD CELL COUNT,WBC 5.53 K/mm3 (3.9-11.3)
[2024-08-11 16:42] LABS: A/G RATIO 1.1 (1-2); ALBUMIN 3.7 g/dl (3.4-5.0); BILIRUBIN TOTAL 0.8 mg/dL (0.2-1.0); BUN/CREATININE RATIO 14.3 (14-18); CALCIUM 8.8 mg/dL (8.5-10.1); CREATININE 1.4 mg/dL (0.7-1.3); EST CRCL DRUG DOSING (CG) 67.9 mL/min; PROTEIN TOTAL,TP 7.1 g/dl (6.4-8.2)
[2024-08-11 16:45] LABS: LACTIC ACID 0.6 mmol/L (0.4-2.0)
[2024-08-11] MEDS: Iopamidol 612 MG/ML 100 ML Bottle IVPUSH ONE (16:45)
[2024-08-11] MEDS: Sodium Chloride 0.9% 10 ML Syringe FLUSH ONE (16:45)
[2024-08-11 17:46] LABS: APPEARANCE,URINE CLEAR (Clear); BILIRUBIN,URINE NEGATIVE (Negative); COLOR,URINE YELLOW (Yellow); GLUCOSE,URINE NEGATIVE (Negative); KETONES,URINE NEGATIVE (Negative); LEUKOCYTE ESTERASE,URINE NEGATIVE (Negative); NITRITE,URINE NEGATIVE (Negative); OCCULT BLOOD,URINE TRACE-INTACT (Negative); PROTEIN,URINE NEGATIVE (Negative); UROBILINOGEN,URINE 0.2 (0.2-1.0)
[2024-08-11 17:56] LABS: RBC,URINE 0-5 /hpf (0-5); WBC,URINE 0-5 /hpf (0-5)
[2024-08-11 17:57] LABS: BACTERIA,URINE OCCASIONAL /hpf (FEW); MUCUS,URINE NOT SEEN /hpf (FEW); SQUAMOUS EPITHELIAL CELLS,UR NOT SEEN /hpf (0-5)
[2024-08-11 19:35] VITALS: BP 172/118; PULSE 63
== END 2024-08-11 19:05 | disposition home or self-care (01) ==
LOC: JD.ED 15:24
DX: N20.0 Calculus of kidney (principal); K59.00 Constipation, unspecified; I10 Essential (primary) hypertension; Z87.891 Personal history of nicotine dependence
CPT/HCPCS: 36415; 74177; 80053; 81001; 83605; 85025; 99284; J3490; Q9967

== ENCOUNTER 2024-09-09 16:24 | Inpatient (IN) | payer BC ==
[2024-09-09 17:53] LABS: BASOPHILS ABSOLUTE AUTO 0.1 K/mm3 (0.0-0.2); BASOPHILS PERCENT AUTO 1.3 % (0.0-1.0); EOSINOPHILS ABSOLUTE AUTO 0.3 K/mm3 (0.0-0.4); EOSINOPHILS PERCENT AUTO 5.1 % (0.0-6.0); HEMATOCRIT 39.8 % (42.0-52.0); HEMOGLOBIN 12.7 gm/dl (14.0-18.0); IMMATURE GRAN ABSOLUTE AUTO 0.01 K/mm3 (0.00-0.05); IMMATURE GRAN PERCENT AUTO 0.2 % (0.0-0.4); LYMPHOCYTES ABSOLUTE AUTO 1.6 K/mm3 (1.0-4.8); LYMPHOCYTES PERCENT AUTO 29.9 % (24.0-44.0); MEAN CORPUSCULAR HGB CONC 31.9 g/dl (32.0-36.0); MEAN CORPUSCULAR VOLUME 87.7 fl (83.0-99.0); MEAN PLATELET VOLUME 10.2 fl (9.4-12.4); MONOCYTES ABSOLUTE AUTO 0.6 K/mm3 (0.0-0.8); NEUTROPHILS ABSOLUTE AUTO 2.8 K/mm3 (1.8-7.7); NEUTROPHILS PERCENT AUTO 52.5 % (41.0-71.0); PLATELET COUNT,PLT 209 K/mm3 (150-400); RED BLOOD CELL COUNT 4.54 M/mm3 (4.52-5.90); WHITE BLOOD CELL COUNT,WBC 5.29 K/mm3 (3.9-11.3)
[2024-09-09 18:23] LABS: A/G RATIO 1.1 (1-2); ALBUMIN 3.4 g/dl (3.4-5.0); ANION GAP 14.7 (5-15); BILIRUBIN TOTAL 0.4 mg/dL (0.2-1.0); CALCIUM 8.6 mg/dL (8.5-10.1); CREATININE 1.6 mg/dL (0.7-1.3); EST CRCL DRUG DOSING (CG) 59.41 mL/min; POTASSIUM,K 3.7 mEq/L (3.5-5.1); PROTEIN TOTAL,TP 6.6 g/dl (6.4-8.2)
[2024-09-09] MEDS: Sodium Chloride 0.9% 500 ML IV ONE (18:55)
[2024-09-09] MEDS: Sodium Chloride 0.9% 10 ML Syringe FLUSH PRN (18:56)
[2024-09-09] MEDS: Iopamidol 612 MG/ML 100 ML Bottle IVPUSH ONE (19:15)
[2024-09-09] MEDS ORDERED: hydrALAZINE 20 MG/ML SDV IVPUSH PRN (20:42)
[2024-09-09] MEDS ORDERED: Labetalol 100 MG/20 ML MDV IVPUSH PRN (20:42)
[2024-09-09 20:46] LABS: APPEARANCE,URINE CLEAR (Clear); BILIRUBIN,URINE NEGATIVE (Negative); COLOR,URINE YELLOW (Yellow); GLUCOSE,URINE NEGATIVE (Negative); KETONES,URINE NEGATIVE (Negative); LEUKOCYTE ESTERASE,URINE NEGATIVE (Negative); NITRITE,URINE NEGATIVE (Negative); OCCULT BLOOD,URINE NEGATIVE (Negative); PROTEIN,URINE NEGATIVE (Negative); UROBILINOGEN,URINE 0.2 (0.2-1.0)
[2024-09-09] MEDS: Dextrose 5%-0.45% NaCl 1,000 ML IV SCH (22:39)
[2024-09-10 05:49] LABS: HEMATOCRIT 39.4 % (42.0-52.0); HEMOGLOBIN 12.7 gm/dl (14.0-18.0); MEAN CORPUSCULAR HEMOGLOBIN 28.5 pg (28.0-32.0); MEAN CORPUSCULAR HGB CONC 32.2 g/dl (32.0-36.0); MEAN CORPUSCULAR VOLUME 88.5 fl (83.0-99.0); MEAN PLATELET VOLUME 10.4 fl (9.4-12.4); PLATELET COUNT,PLT 202 K/mm3 (150-400); RED BLOOD CELL COUNT 4.45 M/mm3 (4.52-5.90); WHITE BLOOD CELL COUNT,WBC 5.27 K/mm3 (3.9-11.3)
[2024-09-10 05:51] LABS: ANION GAP 14.9 (5-15); BUN/CREATININE RATIO 12.7 (14-18); CALCIUM 8.5 mg/dL (8.5-10.1); CREATININE 1.5 mg/dL (0.7-1.3); EST CRCL DRUG DOSING (CG) 63.38 mL/min; POTASSIUM,K 3.9 mEq/L (3.5-5.1)
[2024-09-10 06:00] LABS: INR 1.05; PROTHROMBIN TIME 11.1 SECONDS (9.7-12.0)
[2024-09-10] MEDS: Hydrochlorothiazide 12.5 MG Cap PO SCH (08:50)
[2024-09-10] MEDS: Losartan 50 MG Tab PO SCH (08:51)
[2024-09-10] MEDS: Metoprolol Succinate 25 MG Tab.ER PO SCH (08:54)
[2024-09-10] MEDS: Polyethylene Glycol/Electrolytes 4,000 ML Bottle PO ONE (15:22)
[2024-09-10] MEDS ORDERED: Polyethylene Glycol/Electrolytes 4,000 ML Bottle PO ONE (18:00)
[2024-09-11] MEDS ORDERED: fentaNYL 100 MCG/2 ML SDV ONE ×2 (06:41→08:56)
[2024-09-11] MEDS ORDERED: Propofol 200 MG/20 ML SDV ONE ×2 (06:41→08:56)
[2024-09-11] MEDS ORDERED: Midazolam 1 MG/ML 2 ML SDV ONE ×2 (06:41→08:56)
[2024-09-11] MEDS ORDERED: Lidocaine 1% PF 2 ML SDV ONE ×2 (06:42)
[2024-09-11] MEDS ORDERED: Lidocaine 1% 4 ML ONE (06:42)
[2024-09-11 13:55] VITALS: PULSE 61
[2024-09-11 14:20] VITALS: BP 133/79
== END 2024-09-11 14:20 | disposition home or self-care (01) | DRG 254 ==
LOC: JD.ED 16:24 → JD.MS 20:47 → JD.ICU 21:20
PROVIDERS: ADMIT Surgery; ATTEND Surgery
PROC: 0DB78ZX Excision of Stomach, Pylorus, Via Natural or Artificial Opening Endoscopic, Diagnostic (ICD-10-PCS; principal; 2024-09-11 09:00)
PROC: 0DBL8ZZ Excision of Transverse Colon, Via Natural or Artificial Opening Endoscopic (ICD-10-PCS; 2024-09-11 09:00)
DX: K64.2 Third degree hemorrhoids (principal); N17.9 Acute kidney failure, unspecified; K57.31 Diverticulosis of large intestine without perforation or abscess with bleeding; K63.5 Polyp of colon; I48.91 Unspecified atrial fibrillation; I10 Essential (primary) hypertension; K21.9 Gastro-esophageal reflux disease without esophagitis; M19.90 Unspecified osteoarthritis, unspecified site; Z96.659 Presence of unspecified artificial knee joint; I71.40 Abdominal aortic aneurysm, without rupture, unspecified; Z79.899 Other long term (current) drug therapy; Z87.442 Personal history of urinary calculi; Z87.81 Personal history of (healed) traumatic fracture; Z86.73 Personal history of transient ischemic attack (TIA), and cerebral infarction without residual deficits; Z86.16 Personal history of COVID-19; Z98.890 Other specified postprocedural states
CPT/HCPCS: 00813; 36415; 74177; 74177-26; 80048; 80053; 81003; 82272; 84484; 85025; 85027; 85610; 93005; 93010; 96360; 99222; 99285; 99285-25; A9270-GY; J2250; J2704; J3010; J3490; J7030; J7799; Q9967

== ENCOUNTER 2024-12-05 09:08 | Day surgery (SDC) | payer BC ==
[~2024-12-05 09:08] MED LIST changes: -Acetaminophen 325 MG Tab PO SCH; -Dexamethasone 4 MG/ML 5 ML MDV ONE; -EPINEPHrine 1 MG/ML SDV ONE; -Ketamine 500 mg/10 ML MDV ONE; -Lactated Ringers 1,000 ML IV SCH; -Lactated Ringers 2,000 ML ONE; -Lidocaine 1% 4 ML ONE; -Lidocaine 1%/Sod Bicarbonate in NS 8.4% 1 ML Syringe IDERM PRN; -Midazolam 1 MG/ML 2 ML SDV ONE; -Morphine 8 MG, EPINEPHrine 0.3 MG, Cefuroxime 750 MG, Ketorolac 30 MG, Sodium Chloride ... PRN; -Ondansetron 4 MG/2 ML SDV ONE; -Pregabalin 25 MG Cap PO SCH; -Propofol 200 MG/20 ML SDV ONE; -Ropivacaine 0.5% 5 MG/ML 30 ML SDV ONE; +Sodium Chloride 0.9% 10 ML Syringe FLUSH SCH; -ceFAZolin 1 GM Vial ONE; -fentaNYL 100 MCG/2 ML SDV ONE; -oxyCODONE ER 10 MG TAB.ER PO SCH
[2024-12-05] MEDS ORDERED: Lidocaine 1% 30 ML SDV ONE (09:20)
[2024-12-05] MEDS ORDERED: Bacitracin Oint 15 GM Tube ONE (09:21)
[2024-12-05] MEDS: Lactated Ringers 1,000 ML IV SCH (09:30)
[2024-12-05] MEDS ORDERED: fentaNYL 100 MCG/2 ML SDV ONE (10:14)
[2024-12-05] MEDS ORDERED: Midazolam 1 MG/ML 2 ML SDV ONE (10:14)
[2024-12-05] MEDS ORDERED: Propofol 200 MG/20 ML SDV ONE ×2 (10:14→10:47)
[2024-12-05] MEDS ORDERED: HYDROmorphone 0.5 MG/0.5 ML Syringe IVPUSH PRN (10:15)
[2024-12-05] MEDS ORDERED: Ondansetron 4 MG/2 ML SDV IVPUSH PRN (10:15)
[2024-12-05] MEDS ORDERED: fentaNYL 100 MCG/2 ML SDV IVPUSH PRN (10:15)
[2024-12-05] MEDS ORDERED: Lidocaine 1% 6 ML ONE (10:16)
[2024-12-05] MEDS ORDERED: Ketorolac 30 MG/ML SDV ONE (10:56)
[2024-12-05] MEDS ORDERED: Ondansetron 4 MG/2 ML SDV ONE (10:56)
[2024-12-05] MEDS ORDERED: dexmedeTOMIDine HCl 200 MCG/2 ML SDV ONE (10:56)
[2024-12-05] MEDS ORDERED: Dexamethasone 4 MG/ML 5 ML MDV ONE (10:57)
[2024-12-05] MEDS ORDERED: ePHEDrine 50 MG/ML SDV ONE (11:02)
[2024-12-05] MEDS: Bupivacaine 0.5% 30 ML SDV ONE (11:11)
[2024-12-05] MEDS: EPINEPHrine 1 MG/ML SDV ONE (11:11)
[2024-12-05] MEDS ORDERED: Acetaminophen/HYDROcodone 325-5 MG Tab PO PRN (12:19)
[2024-12-05 14:23] VITALS: BP 146/86; PULSE 64
== END 2024-12-05 13:43 | disposition home or self-care (01) ==
LOC: JD.SDS 09:08
PROVIDERS: ATTEND Surgery
DX: K64.3 Fourth degree hemorrhoids (principal); I86.8 Varicose veins of other specified sites; I10 Essential (primary) hypertension; Z79.899 Other long term (current) drug therapy
CPT/HCPCS: 46260; A9270; J0171; J1100; J2250; J2405; J2704; J3010; J7120; 00902; J0665; J1885; J3490

== ENCOUNTER 2025-03-15 08:08 | Emergency (ER) | payer BC ==
[2025-03-15 08:18] VITALS: PULSE 69
[2025-03-15 08:23] VITALS: BP 178/118
[2025-03-15] MEDS ORDERED: Sodium Chloride 0.9% 10 ML Syringe FLUSH PRN (08:26)
[2025-03-15] MEDS: Aspirin 81 MG Tab.Chew PO ONE (08:43)
[2025-03-15 08:47] LABS: BASOPHILS PERCENT AUTO 0.5 % (0.0-1.0); EOSINOPHILS ABSOLUTE AUTO 0.1 K/mm3 (0.0-0.4); EOSINOPHILS PERCENT AUTO 2.3 % (0.0-6.0); HEMOGLOBIN 13.8 gm/dl (14.0-18.0); IMMATURE GRAN ABSOLUTE AUTO 0.02 K/mm3 (0.00-0.05); IMMATURE GRAN PERCENT AUTO 0.4 % (0.0-0.4); LYMPHOCYTES ABSOLUTE AUTO 1.1 K/mm3 (1.0-4.8); LYMPHOCYTES PERCENT AUTO 19.5 % (24.0-44.0); MEAN CORPUSCULAR HEMOGLOBIN 27.7 pg (28.0-32.0); MEAN CORPUSCULAR HGB CONC 32.1 g/dl (32.0-36.0); MEAN CORPUSCULAR VOLUME 86.3 fl (83.0-99.0); MONOCYTES ABSOLUTE AUTO 0.5 K/mm3 (0.0-0.8); MONOCYTES PERCENT AUTO 9.2 % (0.0-8.0); NEUTROPHILS ABSOLUTE AUTO 3.8 K/mm3 (1.8-7.7); NEUTROPHILS PERCENT AUTO 68.1 % (41.0-71.0); PLATELET COUNT,PLT 235 K/mm3 (150-400); RED BLOOD CELL COUNT 4.98 M/mm3 (4.52-5.90); WHITE BLOOD CELL COUNT,WBC 5.64 K/mm3 (3.9-11.3)
[2025-03-15 09:10] LABS: ALBUMIN 3.4 g/dl (3.4-5.0); ANION GAP 14.2 (5-15); BILIRUBIN TOTAL 0.5 mg/dL (0.2-1.0); BUN/CREATININE RATIO 12.7 (14-18); CALCIUM 8.5 mg/dL (8.5-10.1); CREATININE 1.5 mg/dL (0.7-1.3); EST CRCL DRUG DOSING (CG) 62.59 mL/min; MAGNESIUM 1.9 mg/dL (1.8-2.4); POTASSIUM,K 4.2 mEq/L (3.5-5.1); PROTEIN TOTAL,TP 6.8 g/dl (6.4-8.2)
== END 2025-03-15 11:32 | disposition home or self-care (01) ==
LOC: JD.ED 08:08
DX: R07.89 Other chest pain (principal); I10 Essential (primary) hypertension
CPT/HCPCS: 36415; 71046; 71046-26; 80053; 83735; 84484; 85025; 93005; 93010; 99284; 99285; A9270-GY